=== PATIENT | male | born 1965 | race Caucasian/White ===

== ENCOUNTER → 2022-03-18 | Day surgery (SDC) | payer OTHER ==
[2022-03-14 14:28] VITALS: BP 137/79
[2022-03-14 16:11] LABS: BUN 16 mg/dl (7-24); CHLORIDE 109 mmol/L (98-107); POTASSIUM 4.2 mmol/L (3.5-5.1); SODIUM 140 mmol/L (136-145)
[~2022-03-18] VITALS: Ht 177.8 cm; Wt 93.0 kg
[~2022-03-18] MED LIST: ASPIRIN ADULT L81 M1 PO; HYDROCODONE-AC1 EAC1 PO; ZESTRIL10 MG PO
[2022-03-18 07:15] VITALS: BP 138/99
[2022-03-18 11:03] VITALS: BP 117/63
[2022-03-18 11:20] VITALS: BP 117/60
[2022-03-18 11:30] VITALS: BP 103/45; BP 1034/45
[2022-03-18 11:41] VITALS: BP 91/35
[2022-03-18 12:03] VITALS: BP 122/63
== END | disposition home or self-care (01) ==
LOC: SDC 03-14 14:00
PROVIDERS: ATTEND Orthopaedic Surgery
DX: M77.52 Other enthesopathy of left foot and ankle (principal); M76.62 Achilles tendinitis, left leg; I10 Essential (primary) hypertension; Z98.890 Other specified postprocedural states

== ENCOUNTER → 2022-05-02 | Outpatient (CLI) | payer OTHER | LOC: RAD 09:46 | PROVIDERS: ATTEND Orthopaedic Surgery | DX: M65.28 Calcific tendinitis, other site (principal) ==

== ENCOUNTER → 2022-09-18 | Day surgery (SDC) | payer OTHER ==
[2022-09-17 14:03] VITALS: BP 127/70
[2022-09-17 15:02] LABS: BUN 11 mg/dl (9-23); CHLORIDE 104 mmol/L (98-107); POTASSIUM 4.1 mmol/L (3.4-5.1)
[~2022-09-18] VITALS: Ht 177.8 cm; Wt 93.0 kg
[2022-09-18 06:35] VITALS: BP 138/81
[2022-09-18 09:49] VITALS: BP 151/95
[2022-09-18 10:04] VITALS: BP 130/84
[2022-09-18 10:19] VITALS: BP 131/77
[2022-09-18 10:34] VITALS: BP 137/74
[2022-09-18 10:47] VITALS: BP 135/84
== END | disposition home or self-care (01) ==
LOC: SDC 09-08 14:00
PROVIDERS: ATTEND Orthopaedic Surgery
DX: M76.62 Achilles tendinitis, left leg (principal); I10 Essential (primary) hypertension; E78.00 Pure hypercholesterolemia, unspecified